=== PATIENT | female | born 1995 | race Caucasian/White ===

== ENCOUNTER 2018-10-25 10:43 | Outpatient (REF) | payer OTHER, SELFPAY ==
--- NOTE | 2018-10-25 09:30 | PAPFT_PTH ---
PATIENT: Stephanie Serra LOC: [facility] U#:[id number] AGE/SX: 23/F ROOM: RE10/25/[address]: EDSON Resendiz : 1995 BED: DIS: 10/25/2018 SPEC #: [id number] RECD: 10/25/18 13:13 STATUS: HANNAH REHudson #: [id number] MADELYN: 10/25/18 09:[address]: Sofia Hernandez DEPT: [facility] Cytology RECD BY: Jewell Mcleod Tissues: 1 - CX/ENDOCX FOR PAP SMEARS Procedures: PAP THIN PREP/[facility] Screening Comments: [id number] (CHLAMYDIA/GC)
[2018-10-28 15:17] LABS: Chlamydia Result Negative; GC Result Negative; Specimen Description SEE COMMENTS
== END 2018-10-25 11:03 ==
LOC: LBN 10:43
PROVIDERS: PCP Nurse Practitioner Family; Visit Provider Nurse Practitioner Family
DX: Z12.4 Encounter for screening for malignant neoplasm of cervix (principal); Z11.3 Encounter for screening for infections with a predominantly sexual mode of transmission
CPT/HCPCS: 87491; 87591; 88142

== ENCOUNTER 2019-11-19 02:02 | Outpatient (CLI) | payer OTHER, SELFPAY ==
[2019-11-19 11:40] LABS: Anion Gap 8.3 mmol/L (3-11); BUN 12 mg/dL (7-18); CO2 29.7 mmol/L (21.0-32.0); Calcium 9.2 mg/dL (8.5-10.1); Chloride 103 mmol/L (98-107); Glucose 89 mg/dL (74-106); Potassium 4.3 mmol/L (3.5-5.1); Sodium 141 mmol/L (136-145)
[2019-11-20 04:33] LABS: Vitamin D 25 Total 15.4 ng/ml (30-100)
== END 2019-11-19 02:22 ==
PROVIDERS: PCP Nurse Practitioner Family; Visit Provider Nurse Practitioner Family
DX: E55.9 Vitamin D deficiency, unspecified (principal)
CPT/HCPCS: 36415; 80048; 82306

== ENCOUNTER 2020-08-06 01:44 | Outpatient (CLI) | payer MEDICAID, SELFPAY ==
[2020-08-25 10:32] LABS: CMV IgG Antibody Negative (Negative)
== END 2020-08-06 02:04 ==
PROVIDERS: Visit Provider Nurse Practitioner Family
DX: Z31.69 Encounter for other general counseling and advice on procreation (principal)
CPT/HCPCS: 36415; 86644

== ENCOUNTER 2020-11-22 03:51 | Outpatient (CLI) | payer MEDICAID, SELFPAY ==
[2020-11-22 11:58] LABS: Calculated LDL 102 mg/dL (<100); Cholesterol 182 mg/dL (<200); HDL Cholesterol 52 mg/dL (40-60); Triglyceride 140 mg/dL (<150)
[2020-11-23 11:49] LABS: Hepatitis C Ab w Rflx HCV PCR Negative (Negative)
[2020-11-23 12:28] LABS: HIV-1/2 Ag & Ab Screen Negative (Negative)
[2020-11-24 13:21] LABS: IgA 81 mg/dL (85-499); Interpretation (See Note); Tissue Transglutaminase IgA <1.2 U/mL (<4.0)
== END 2020-11-22 03:52 | disposition home or self-care (01) ==
PROVIDERS: PCP Nurse Practitioner Family; Visit Provider Nurse Practitioner Family
DX: K52.9 Noninfective gastroenteritis and colitis, unspecified (principal); Z11.4 Encounter for screening for human immunodeficiency virus [HIV]; Z11.59 Encounter for screening for other viral diseases; Z13.220 Encounter for screening for lipoid disorders
CPT/HCPCS: 36415; 80061; 82784; 83516; 86803; 87389

== ENCOUNTER 2021-11-16 00:31 | Outpatient (CLI) | payer MEDICAID, SELFPAY ==
--- NOTE | 2021-11-16 06:30 | DI.RAD_ITS ---
Exam(s) XR CHEST 2V PA LATERAL EXAM: XR CHEST 2V PA LATERAL CLINICAL HISTORY: dyspnea on exertion, cough, h/o covid TECHNIQUE: 2D digital imaging was performed. COMPARISON: CR CHEST 2 VIEWS PA,LAT from 07/10/2012 FINDINGS: MEDIASTINUM: Normal. HEART: Normal. PULMONARY VASCULATURE: Normal. LUNGS: Clear. PLEURAL SPACE: No pleural effusion or pneumothorax. BONE:Unremarkable for age. IMPRESSION: No acute abnormality. DATA REPOSITORY: RADIATION DOSE DELIVERED:
== END 2021-11-16 00:51 ==
PROVIDERS: PCP Nurse Practitioner; Visit Provider Nurse Practitioner
DX: R06.00 Dyspnea, unspecified (principal); R05.8 Other specified cough
CPT/HCPCS: 71046

== ENCOUNTER 2021-11-22 03:05 | Outpatient (CLI) | payer MEDICAID, SELFPAY ==
[2021-11-22 07:17] LABS: HCT 41.2 % (36.0-46.0); HGB 13.2 g/dL (11.2-15.7); MCH 28.6 pg (27.0-33.0); MCV 89.4 fL (80-95); MPV 9.5 fL (8.0-11.0); Platelet Count 362 10^3/uL (130-400); RBC 4.61 10^6/uL (3.93-5.22); RDW-SD 42.5 fL; WBC 5.67 10^3/uL (4.4-10.8)
[2021-11-22 08:57] LABS: ALT 29 U/L (14-59); AST 11 U/L (15-37); Albumin 3.9 g/dL (3.4-5.0); Alkaline Phosphatase 69 U/L (46-116); Anion Gap 4.3 mmol/L (3-11); BUN 13 mg/dL (7-18); Bilirubin, Total 0.6 mg/dL (0.2-1.0); CO2 30.7 mmol/L (21.0-32.0); CREATININE 0.7 mg/dL (0.55-1.02); Calculated LDL 135 mg/dL (<100); Chloride 102 mmol/L (98-107); Cholesterol 208 mg/dL (<200); Glucose 92 mg/dL (74-106); HDL Cholesterol 53 mg/dL (40-60); Potassium 4.4 mmol/L (3.5-5.1); Sodium 137 mmol/L (136-145); Total Protein 7.1 g/dL (6.4-8.2); Triglyceride 101 mg/dL (<150)
[2021-11-24 05:46] LABS: Vitamin D 25 Total 27.8 ng/mL (30-100)
== END 2021-11-22 03:06 | disposition home or self-care (01) ==
LOC: LBO 03:06
PROVIDERS: PCP Nurse Practitioner; Visit Provider Nurse Practitioner
DX: E55.9 Vitamin D deficiency, unspecified (principal); Z13.220 Encounter for screening for lipoid disorders
CPT/HCPCS: 36415; 80053; 80061; 82306; 85027

== ENCOUNTER 2022-07-19 16:25 | Outpatient (REF) | payer MEDICAID, SELFPAY ==
--- NOTE | 2022-07-19 15:45 | PAPFT_PTH ---
PATIENT: Stephanie Serra LOC: [facility] U#:[id number] AGE/SX: 27/F ROOM: RE07/19/[address]: Korina Gallo NP : 1995 BED: DIS: 07/19/2022 SPEC #: [id number] RECD: 07/19/22 18:01 STATUS: HANNAH REHudson #: [id number] MADELYN: 07/19/22 15:[address]: Korina Gallo NP DEPT: [facility] Cytology RECD BY: Jewell Mcleod ENTERED: 07/19/22 18:02 SP TYPE: PAPFT OTHR DR: Rosalva Yan APRN Tissues: 1 - CX/ENDOCX FOR PAP SMEARS Procedures: PAP THIN PREP/[facility] Screening Comments: [id number] (CHLAMYDIA/GC)
[2022-07-20 15:14] LABS: Chlamydia Result Negative (Negative); GC Result Negative (Negative)
== END 2022-07-19 16:26 | disposition home or self-care (01) ==
LOC: LBN 16:25
PROVIDERS: PCP Nurse Practitioner; Visit Provider Nurse Practitioner Women's Health
DX: Z12.4 Encounter for screening for malignant neoplasm of cervix (principal); Z11.3 Encounter for screening for infections with a predominantly sexual mode of transmission
CPT/HCPCS: 87491; 87591; 88142

== ENCOUNTER 2023-08-08 16:56 | Outpatient (REF) | payer OTHER, SELFPAY ==
[2023-08-08 20:33] LABS: COVID-19 PCR Negative (Negative); Influenza A PCR Negative (Negative); Influenza B PCR Negative (Negative); RSV PCR Negative (Negative)
[2023-08-08 21:00] LABS: Source Nasopharynx
== END 2023-08-08 16:57 | disposition home or self-care (01) ==
LOC: LBN 16:56
PROVIDERS: PCP Nurse Practitioner; Referring Provider Nurse Practitioner; Visit Provider Nurse Practitioner
DX: R05.8 Other specified cough (principal); R09.89 Other specified symptoms and signs involving the circulatory and respiratory systems; Z20.822 Contact with and (suspected) exposure to COVID-19
CPT/HCPCS: 87637

== ENCOUNTER 2025-07-17 11:30 | Outpatient (CLI) | payer BC, SELFPAY ==
--- NOTE | 2025-07-17 11:30 | RT.EKG_ITS ---
APPROVED REPORT Exam: Resting ECG Reason for Exam: racing heart/palpitations. Patient Location: O HR:65 bpm ECG Measurements Heart Rate 65 AXIS HI 169 P 5 QRSd 100 QRS 12 QT 395 T 13 QTc 411 Conclusion Sinus rhythm...normal P axis, V-rate 50- 99 Normal Electrocardiogram
== END 2025-07-17 11:31 | disposition home or self-care (01) ==
LOC: DI.KIM 11:31
PROVIDERS: PCP Nurse Practitioner; Visit Provider Family Medicine
DX: R00.0 Tachycardia, unspecified (principal); F90.0 Attention-deficit hyperactivity disorder, predominantly inattentive type
CPT/HCPCS: 93010

== ENCOUNTER 2025-07-27 08:00 | Outpatient (CLI) | payer BC, SELFPAY | END 2025-07-27 08:01 | disposition home or self-care (01) | PROVIDERS: PCP Nurse Practitioner; Visit Provider Family Medicine | DX: R00.0 Tachycardia, unspecified (principal) | CPT/HCPCS: 93246 ==

== ENCOUNTER 2025-08-25 07:21 | Outpatient (CLI) | payer BC, SELFPAY ==
--- NOTE | 2025-08-25 09:31 | W.CARDEVENT ---
Date of service: 08/25/25 Time of Service: 09:31 Cardiac Event Recorder Referring Provider:: Trace Valdez Indications:: Tachycardia Cardiac Event Note: This is a cardiac event monitor. Patient was monitored for 6 days and 1 hour Rhythm throughout was sinus with an average heart rate of 75. Minimum was 35, maximum 140 There were no ventricular dysrhythmias There were very rare isolated atrial premature beats. There was no atrial fibrillation, no high-grade AV block, no pauses greater than 3 seconds. No symptoms were reported
== END 2025-08-25 07:22 | disposition home or self-care (01) ==
LOC: CARDOPNVT 07:21
PROVIDERS: PCP Nurse Practitioner; Visit Provider Internal Medicine Cardiovascular Disease

== ENCOUNTER 2025-09-03 11:58 | Outpatient (CLI) | payer BC, SELFPAY ==
--- NOTE | 2025-09-03 12:16 | W.CARDEVENT ---
Date of service: 09/03/25 Time of Service: 12:16 Cardiac Event Recorder Referring Provider:: Trace Valdez Indications:: Palpitations Cardiac Event Note: This is a corrected report of a cardiac event monitor. Patient was monitored for 6 days and 1 hour Rhythm throughout was sinus. Average heart rate was 73. Minimum was 35, maximum 140 There were no ventricular dysrhythmias There were a total of 112 premature atrial contractions There was no atrial fibrillation, no SVT, no high-grade AV block, no pauses greater than 3 seconds. A total of 9 patient symptoms were reported. All correlated to sinus rhythm, with heart rate ranging from 60-1 04. There was no correlation to any dysrhythmia
== END 2025-09-03 11:59 ==
LOC: CARDOPNVT 11:58
PROVIDERS: PCP Nurse Practitioner; Visit Provider Internal Medicine Cardiovascular Disease
DX: R00.2 Palpitations (principal); I49.1 Atrial premature depolarization